=== PATIENT | female | born 1935 | race African-American/Black ===

== ENCOUNTER 2016-06-15 12:12 | Inpatient (IN) | payer OTHER, BC ==
[~2016-06-15] VITALS: Ht 162.6 cm; Wt 82.5 kg
[2016-06-15] VITALS (11 sets, daily range): BP systolic 100–149; BP diastolic 50–69
[~2016-06-15 12:12] MED LIST: ADVAIR 250/501 DIS1 IH; ADVAIR 250/501 DISK IH; AMBIEN10 MG PO; AMLODIPINE BESY10 MG PO; ASPIR 8181 M1 PO; ASPIRIN325 MG PO; ASPIRIN81 M1 PO; AZITHROMYCIN250 MG1 PO; Advair 250/50 Diskus IH; BACTRIM,SEPT1 TABLET PO; BAYER CHILDREN'81 MG PO; CEFDINIR300 MG PO; CEFTIN500 MG PO; CELEBREX200 MG PO; CILOSTAZOL100 MG PO; COMBIVENT INH14.7 GM IH; COMBIVENT200 INHALA IH; COUMADIN,JANTOVE5 MG PO; Combivent IH; Coumadin dosing per PO; DELTASONE20 M1 PO; DIOVAN HCT 11 TABLE1 PO; DIOVAN HCT 1601 EAC1 PO; DIOVAN160 MG PO; DOXYCYCLINE HY100 MG PO; FEOSOL325 MG PO; FEROSUL325 MG PO; Feosol PO; Flagyl PO; GLUCOPHAGE500 MG PO; HYZAAR 50-121 TABLET PO; IRON27 MG PO; IRON325 M1 PO; IRON325 MG PO; K-DUR10 MEQ PO; KLOR-CON 88 MEQ PO; KLOR-CON M1010 MEQ PO; LASIX20 MG PO; LOPRESSOR25 MG PO; METOPROLOL TART25 MG PO; Maxipime IV; NORCO 5/3251 TABLET PO; Norvasc PO; OXYCODONE-APAP1 EACH PO; OYST-CAL D, OS500 MG PO; PANTOPRAZOLE SO40 MG PO; PERCOCET 5/31 TABLET PO; PLAVIX75 MG PO; PLETAL100 MG PO; POTASSIUM CHLO10 ME3 PO; PREDNISONE5 MG PO; PROAIR HFA8.5 GM IH; Pletal PO; SENOKOT S,PE1 TABLET PO; SIMVASTATIN20 MG PO; SIMVASTATIN40 MG PO; SPIRIVA RESPIMAT4 GM IH; TESSALON200 MG PO; THERAGRAN1 TABLET PO; Tylenol Regular Stre PO; VALSARTAN160 MG PO; VITAMIN D1000 INTUN PO; Vicodin,Lortab 5/500 PO; Vicodin,Norco 5/325 PO; ZITHROMAX Z-PA250 MG PO; ZOCOR20 MG PO; Zocor PO; predniSONE PO
[2016-06-15 13:15] LABS: POINT-OF-CARE METER ID UU14174212
[2016-06-15 20:21] LABS: METH RESISTANT S AUREUS PCR NEGATIVE (NEGATIVE)
[2016-06-15 20:22] LABS: BASE EXCESS -0.7 mEq/L (-3 to +3); BICARBONATE 24.2 mEq/L (22-26); CARBOXY HGB 1.4 % (0-5); COMMENTS - BLOOD GASES C+A+; DEVICE VENTILATOR; FI02 60 %; MECHANICAL RATE 16 resp/min; METHEMOGLOBIN 1.7 % (0-1.5); MODE AC; PCO2 40 mm Hg (35-45); PEEP 8 CM/H20; PO2 103 mm Hg (80-100); SITE RB; TIDAL VOLUME 400 ML; TOTAL RESP RATE 27 resp/min; pH 7.39 (7.35-7.45)
[2016-06-15 20:23] LABS: PROBE CHECK PASS; SPECIMEN PROCESSING CONTROL PASS
[2016-06-15 20:33] LABS: HEMATOCRIT 35.7 % (36.0-46.0); MCH 30.3 PG (29.0-34.0); MCHC 32.2 G/DL (30.0-36.0); MCV 93.9 FL (83-99); MEAN PLAT.VOLUME 11.4 uM^3 (9.5-12.4); PLATELET COUNT 202 K/uL (156-360); RBC DIS.WIDTH-CV 15.9 % (11.8-14.6); RBC DIS.WIDTH-SD 54.4 % (39-53)
[2016-06-15 20:48] LABS: ANION GAP 15 MEQ/L (2-14); CHLORIDE 105 MEQ/L (99-109); MAGNESIUM 1.7 mg/dl (1.3-2.7); POTASSIUM 4.1 MEQ/L (3.7-5.4); SAMPLE HEMOLYSIS CHECK 0; SAMPLE ICTERIC CHECK 0; SAMPLE LIPEMIA CHECK 0; SODIUM 142 MEQ/L (136-147)
[2016-06-15 20:54] LABS: GFR ESTIMATE (CALCULATED) > 59 mL/min/; GLUCOSE 109 mg/dL (70-99); UREA NITROGEN (BUN) 16 mg/dL (9-23)
[2016-06-15 22:07] LABS: Estimated Average Glucose 126 mg/dL (70-123)
[2016-06-16] VITALS (12 sets, daily range): BP systolic 100–126; BP diastolic 47–63
[2016-06-16 05:47] LABS: HEMATOCRIT 32.5 % (36.0-46.0); MCH 29.5 PG (29.0-34.0); MCHC 31.7 G/DL (30.0-36.0); MCV 93.1 FL (83-99); MEAN PLAT.VOLUME 11.8 uM^3 (9.5-12.4); PLATELET COUNT 201 K/uL (156-360); RBC DIS.WIDTH-CV 15.8 % (11.8-14.6); RBC DIS.WIDTH-SD 53.6 % (39-53); RED BLOOD COUNT 3.49 M/uL (3.80-5.20); WHITE BLOOD COUNT 8.7 K/uL (4.1-10.2)
[2016-06-16 06:25] LABS: ANION GAP 10 MEQ/L (2-14); CHLORIDE 106 MEQ/L (99-109); GFR ESTIMATE (CALCULATED) > 59 mL/min/; GLUCOSE 90 mg/dL (70-99); MAGNESIUM 1.5 mg/dl (1.3-2.7); POTASSIUM 3.8 MEQ/L (3.7-5.4); SAMPLE HEMOLYSIS CHECK 0; SAMPLE ICTERIC CHECK 0; SAMPLE LIPEMIA CHECK 0; SODIUM 138 MEQ/L (136-147); UREA NITROGEN (BUN) 15 mg/dL (9-23)
[2016-06-17] VITALS (9 sets, daily range): BP systolic 122–145; BP diastolic 48–93
[2016-06-17 14:07] LABS: HEMATOCRIT 38.1 % (36.0-46.0); MCH 29.5 PG (29.0-34.0); MCHC 31.2 G/DL (30.0-36.0); MCV 94.5 FL (83-99); MEAN PLAT.VOLUME 11.7 uM^3 (9.5-12.4); PLATELET COUNT 186 K/uL (156-360); RBC DIS.WIDTH-CV 15.9 % (11.8-14.6); RBC DIS.WIDTH-SD 52.5 % (39-53); RED BLOOD COUNT 4.03 M/uL (3.80-5.20); WHITE BLOOD COUNT 8.8 K/uL (4.1-10.2)
[2016-06-17 14:17] LABS: CHLORIDE 105 mEq/L (99-109); SODIUM 139 mEq/L (136-147)
[2016-06-17 14:18] LABS: GLUCOSE 87 mg/dL (70-99)
[2016-06-17 14:20] LABS: ANION GAP 10 MEQ/L (2-14)
[2016-06-17 14:22] LABS: GFR ESTIMATE (CALCULATED) > 59 mL/min/
[2016-06-17 14:23] LABS: UREA NITROGEN (BUN) 13 mg/dL (9-23)
[2016-06-18] VITALS (8 sets, daily range): BP systolic 120–167; BP diastolic 56–86
[2016-06-19] VITALS: BP 143/60
[2016-06-19 04:00] VITALS: BP 111/54
[2016-06-19 09:00] VITALS: BP 119/55
[2016-06-19 12:00] VITALS: BP 141/102
[2016-06-19 16:01] VITALS: BP 117/50
[2016-06-19 20:00] VITALS: BP 127/51
[2016-06-20] VITALS (9 sets, daily range): BP systolic 104–134; BP diastolic 49–58
[2016-06-21] VITALS (12 sets, daily range): BP systolic 109–140; BP diastolic 39–72
[2016-06-21 20:55] LABS: POINT-OF-CARE METER ID UU14174217
[2016-06-22] VITALS (8 sets, daily range): BP systolic 0–141; BP diastolic 0–66
[2016-06-22 06:27] LABS: POINT-OF-CARE METER ID UU13113731
[2016-06-22 12:10] LABS: POINT-OF-CARE METER ID UU14162636
[2016-06-22 18:11] LABS: POINT-OF-CARE METER ID UU14162636
[2016-06-22 21:24] LABS: POINT-OF-CARE METER ID UU14162636
[2016-06-23] VITALS (7 sets, daily range): BP systolic 127–163; BP diastolic 57–72
[2016-06-24 07:58] VITALS: BP 125/60
[2016-06-24 11:23] VITALS: BP 155/68
[2016-06-24 16:57] VITALS: BP 163/69
[2016-06-24 20:11] VITALS: BP 142/63
[2016-06-24 23:22] VITALS: BP 142/70
[2016-06-25 07:13] LABS: EOSINOPHIL COUNT 0.9 K/uL (0-0.3); IMMATURE GRANULOCYTE (%) 0.7 % (0.0-0.7); IMMATURE GRANULOCYTE COUNT 0.1 K/uL; LYMPHOCYTE COUNT 3.3 K/uL (1.0-2.8); MCH 29.2 PG (29.0-34.0); MCHC 31.1 G/DL (30.0-36.0); MCV 93.9 FL (83-99); MEAN PLAT.VOLUME 12.2 uM^3 (9.5-12.4); MONOCYTE COUNT 1.1 K/uL (0-0.8); NEUTROPHIL COUNT 9.6 K/uL (1.8-6.4); PLATELET COUNT 243 K/uL (156-360); RBC DIS.WIDTH-CV 16.5 % (11.8-14.6); RBC DIS.WIDTH-SD 56.6 % (39-53); RED BLOOD COUNT 3.94 M/uL (3.80-5.20); WHITE BLOOD COUNT 15.1 K/uL (4.1-10.2)
[2016-06-25 07:20] LABS: ALKALINE PHOSPHATASE 92 IU/L (3-129); ANION GAP 10 MEQ/L (2-14); CHLORIDE 107 MEQ/L (99-109); GFR ESTIMATE (CALCULATED) > 59 mL/min/; GLUCOSE 76 mg/dL (70-99); SAMPLE HEMOLYSIS CHECK 0; SAMPLE ICTERIC CHECK 0; SAMPLE LIPEMIA CHECK 0; SODIUM 142 MEQ/L (136-147); TOTAL BILIRUBIN 0.4 MG/DL (0.0-1.0); UREA NITROGEN (BUN) 16 mg/dL (9-23)
[2016-06-25 07:52] LABS: HEMATOLOGY COMMENT 1 SMEAR COMPATIBLE; PLAT.SUFFICIENCY ADEQUATE
[2016-06-25 08:40] VITALS: BP 159/69
[2016-06-25 16:13] VITALS: BP 128/61
[2016-06-26 00:25] VITALS: BP 135/65
[2016-06-26 07:59] VITALS: BP 153/77
[2016-06-26 16:03] VITALS: BP 123/67
[2016-06-26 23:59] VITALS: BP 158/68
[2016-06-27 07:48] VITALS: BP 177/80
[2016-06-27 15:03] VITALS: BP 119/54
[2016-06-27 23:35] VITALS: BP 126/70; BP 137/90
[2016-06-28 07:20] VITALS: BP 116/58
[2016-06-28 15:20] VITALS: BP 145/63
[2016-06-28 23:00] VITALS: BP 143/64
[2016-06-29] VITALS (7 sets, daily range): BP systolic 110–152; BP diastolic 54–86
[2016-06-29 13:09] LABS: HEMATOCRIT 37.7 % (36.0-46.0); MCH 30.1 PG (29.0-34.0); MCHC 31.8 G/DL (30.0-36.0); MCV 94.5 FL (83-99); MEAN PLAT.VOLUME 12.1 uM^3 (9.5-12.4); PLATELET COUNT 213 K/uL (156-360); RBC DIS.WIDTH-CV 16.9 % (11.8-14.6); RBC DIS.WIDTH-SD 57.7 % (39-53); RED BLOOD COUNT 3.99 M/uL (3.80-5.20); WHITE BLOOD COUNT 11.4 K/uL (4.1-10.2)
[2016-06-29 13:34] LABS: ALKALINE PHOSPHATASE 97 IU/L (3-129); ANION GAP 9 MEQ/L (2-14); CHLORIDE 105 MEQ/L (99-109); GFR ESTIMATE (CALCULATED) > 59 mL/min/; GLUCOSE 144 mg/dL (70-99); POTASSIUM 4.1 MEQ/L (3.7-5.4); SAMPLE HEMOLYSIS CHECK 0; SAMPLE ICTERIC CHECK 0; SAMPLE LIPEMIA CHECK 0; SODIUM 141 MEQ/L (136-147); UREA NITROGEN (BUN) 14 mg/dL (9-23)
[2016-06-29 13:45] LABS: TOTAL BILIRUBIN 0.5 MG/DL (0.0-1.0)
[2016-06-29 13:47] LABS: EOSINOPHIL (%) 0.4 % (0-5); EOSINOPHIL COUNT 0.1 K/uL (0-0.3); IMMATURE GRANULOCYTE (%) 0.4 % (0.0-0.7); IMMATURE GRANULOCYTE COUNT 0.1 K/uL; LYMPHOCYTE COUNT 0.7 K/uL (1.0-2.8); MONOCYTE COUNT 0.1 K/uL (0-0.8); NEUTROPHIL (%) 92.3 % (45-76); NEUTROPHIL COUNT 10.5 K/uL (1.8-6.4)
[2016-06-30 06:01] LABS: POINT-OF-CARE METER ID UU13113725
[2016-06-30 07:50] VITALS: BP 140/61
[2016-06-30 15:05] VITALS: BP 158/67
[2016-06-30 15:16] LABS: POINT-OF-CARE METER ID UU13113725
[2016-06-30 21:13] LABS: POINT-OF-CARE METER ID UU13113725
[2016-06-30 23:49] VITALS: BP 114/56
[2016-07-01 09:13] VITALS: BP 115/58
[2016-07-01 11:42] LABS: POINT-OF-CARE METER ID UU13113725
[2016-07-01 12:37] LABS: TROP-I INTERPRETATION NEGATIVE; TROPONIN-I 0.01 ng/mL (0.0-0.30)
[2016-07-01 16:00] VITALS: BP 156/56
[2016-07-01 16:25] VITALS: BP 121/69
[2016-07-01 16:36] LABS: POINT-OF-CARE METER ID UU13113725
[2016-07-01 19:31] LABS: TROP-I INTERPRETATION NEGATIVE; TROPONIN-I 0.02 ng/mL (0.0-0.30)
[2016-07-01 21:45] LABS: TROP-I INTERPRETATION NEGATIVE; TROPONIN-I 0.02 ng/mL (0.0-0.30)
[2016-07-01 22:04] LABS: POINT-OF-CARE METER ID UU13113725
[2016-07-01 23:41] VITALS: BP 116/55
[2016-07-02 07:38] VITALS: BP 137/90
[2016-07-02 15:27] VITALS: BP 158/93
[2016-07-02 21:38] LABS: POINT-OF-CARE METER ID UU13113725
[2016-07-02 23:05] VITALS: BP 147/65
[2016-07-03 08:38] VITALS: BP 136/71
[2016-07-03 12:41] VITALS: BP 161/67
[2016-07-03 15:07] VITALS: BP 116/59
[2016-07-03 22:43] VITALS: BP 153/68
[2016-07-03 22:46] VITALS: BP 114/70
[2016-07-04 08:33] VITALS: BP 132/73
[2016-07-04 12:06] LABS: POINT-OF-CARE METER ID UU13113725
[2016-07-04 15:59] VITALS: BP 139/66
[2016-07-04 16:16] LABS: POINT-OF-CARE METER ID UU13113725
[2016-07-04 21:13] LABS: POINT-OF-CARE METER ID UU13113725
[2016-07-04 23:15] VITALS: BP 133/64
[2016-07-05 05:39] LABS: POINT-OF-CARE METER ID UU13113725
[2016-07-05 11:26] LABS: POINT-OF-CARE METER ID UU13113725
[2016-07-05 16:58] VITALS: BP 178/77
[2016-07-05 21:01] LABS: POINT-OF-CARE METER ID UU13113725
[2016-07-05 23:31] VITALS: BP 129/63
[2016-07-06 06:23] LABS: POINT-OF-CARE METER ID UU13113725
[2016-07-06 07:40] VITALS: BP 147/66
[2016-07-06 09:12] LABS: HEMATOCRIT 34.8 % (36.0-46.0); MCH 30.1 PG (29.0-34.0); MCHC 31.9 G/DL (30.0-36.0); MCV 94.3 FL (83-99); MEAN PLAT.VOLUME 11.9 uM^3 (9.5-12.4); PLATELET COUNT 167 K/uL (156-360); RBC DIS.WIDTH-SD 58.1 % (39-53); RED BLOOD COUNT 3.69 M/uL (3.80-5.20); WHITE BLOOD COUNT 10.4 K/uL (4.1-10.2)
[2016-07-06 09:35] LABS: ANION GAP 10 MEQ/L (2-14); CHLORIDE 110 MEQ/L (99-109); GFR ESTIMATE (CALCULATED) > 59 mL/min/; GLUCOSE 106 mg/dL (70-99); POTASSIUM 3.7 MEQ/L (3.7-5.4); SAMPLE HEMOLYSIS CHECK 0; SAMPLE ICTERIC CHECK 0; SAMPLE LIPEMIA CHECK 0; SODIUM 143 MEQ/L (136-147); UREA NITROGEN (BUN) 20 mg/dL (9-23)
[2016-07-06 12:33] LABS: POINT-OF-CARE METER ID UU13113725
[2016-07-06 15:55] VITALS: BP 147/67
[2016-07-06 16:09] LABS: POINT-OF-CARE METER ID UU13113725
[2016-07-06 21:13] LABS: POINT-OF-CARE METER ID UU13113725
[2016-07-06 23:25] VITALS: BP 116/56
[2016-07-07 05:56] LABS: POINT-OF-CARE METER ID UU13113725
[2016-07-07 07:10] LABS: DELETE MACHINE DIFF? YES; HEMATOCRIT 33.7 % (36.0-46.0); MCH 29.8 PG (29.0-34.0); MCHC 31.8 G/DL (30.0-36.0); MCV 93.9 FL (83-99); RBC DIS.WIDTH-CV 17.1 % (11.8-14.6); RED BLOOD COUNT 3.59 M/uL (3.80-5.20); WHITE BLOOD COUNT 9.1 K/uL (4.1-10.2)
[2016-07-07 07:31] LABS: ALKALINE PHOSPHATASE 87 IU/L (3-129); ANION GAP 12 MEQ/L (2-14); CHLORIDE 109 MEQ/L (99-109); GFR ESTIMATE (CALCULATED) > 59 mL/min/; GLUCOSE 85 mg/dL (70-99); SAMPLE HEMOLYSIS CHECK 0; SAMPLE ICTERIC CHECK 0; SAMPLE LIPEMIA CHECK 0; SODIUM 140 MEQ/L (136-147); TOTAL BILIRUBIN 0.5 MG/DL (0.0-1.0); UREA NITROGEN (BUN) 20 mg/dL (9-23)
[2016-07-07 08:13] LABS: ABS NEUTROPHIL COUNT 6.56; ANISOCYTOSIS 1+; EOSINOPHIL ABS CT 0.73; MACROCYTES 1+; PLAT.SUFFICIENCY ADEQUATE; PLATELET COUNT UNABLE TO REPORT K/uL (156-360); POLYCHROMASIA OCC
[2016-07-07 09:10] VITALS: BP 176/71
[2016-07-07 11:32] LABS: POINT-OF-CARE METER ID UU13113725
[2016-07-07 16:16] LABS: POINT-OF-CARE METER ID UU13113725
[2016-07-07 16:44] VITALS: BP 180/74
[2016-07-07] MEDS ORDERED: PREDNISONE20 MG PO (18:06)
[2016-07-07] MEDS ORDERED: DOCUSATE SODIU100 MG PO (18:06)
[2016-07-07] MEDS ORDERED: ENDOCET 5-3251 EACH PO (18:06)
== END 2016-07-07 20:30 | disposition home health service (06) | DRG 166 ==
LOC: SDC 12:12 → 4WEST 16:36 → 2SOUTH 16:36 → 5EAST 16:36 → 2EAST 16:36 → 4WEST 17:59 → 2EAST 06-22 23:46 → 5EAST 06-29 19:14
PROVIDERS: Anesthesiology; Emergency Medicine; Internal Medicine; Internal Medicine Pulmonary Disease; Surgery; Thoracic Surgery (Cardiothoracic Vascular Surgery)
DX: C34.11 Malignant neoplasm of upper lobe, right bronchus or lung (principal); J95.821 Acute postprocedural respiratory failure; C78.02 Secondary malignant neoplasm of left lung; J98.11 Atelectasis; J44.1 Chronic obstructive pulmonary disease with (acute) exacerbation; R07.89 Other chest pain; R94.31 Abnormal electrocardiogram [ECG] [EKG]; E11.9 Type 2 diabetes mellitus without complications; I10 Essential (primary) hypertension; D64.9 Anemia, unspecified; M54.9 Dorsalgia, unspecified; G89.29 Other chronic pain; I73.9 Peripheral vascular disease, unspecified; E78.5 Hyperlipidemia, unspecified; Z96.643 Presence of artificial hip joint, bilateral; Z87.891 Personal history of nicotine dependence; Z88.0 Allergy status to penicillin; Z88.1 Allergy status to other antibiotic agents; Z79.82 Long term (current) use of aspirin
CPT/HCPCS: 36415; 36600; 71010; 71020; 71275; 74220; 77293; 77300; 77301; 77334; 77338; 77338 XS; 77385; 80048; 80053; 82803; 82948; 83036; 83735; 84100; 84439; 84443; 84484; 85025; 85027; 85610 GA; 85730 GA; 86850; 86900; 86901; 87070; 87205; 87641; 88305; 93005; 94002; 94640; 94640 76; 94667; 94668; 94760; 94799; 97530 GO; 97530 GP; 99202; C1751; J0330; J0690; J0692; J1100; J1170; J1200; J1335; J1626; J1644; J1815; J1940; J2250; J2405; J2704; J2710; J2920; J2930; J3010; J3475; J7050; J7120; J7512; J8540; J9045; J9267; S0028

== ENCOUNTER 2016-09-08 23:42 | Emergency (ER) | payer OTHER, BC ==
[~2016-09-08] VITALS: Ht 162.6 cm; Wt 70.1 kg
[~2016-09-08 23:42] MED LIST changes: +DOCUSATE SODIU100 MG PO; +ENDOCET 5-3251 EACH PO; +PREDNISONE20 MG PO
[2016-09-09 00:34] LABS: HEMATOCRIT 34.3 % (36.0-46.0); MCH 31.7 PG (29.0-34.0); MCHC 32.4 G/DL (30.0-36.0); PLATELET COUNT 268 K/uL (156-360); RBC DIS.WIDTH-CV 20.3 % (11.8-14.6); RBC DIS.WIDTH-SD 72.4 % (39-53); WHITE BLOOD COUNT 4.4 K/uL (4.1-10.2)
[2016-09-09 00:50] LABS: CHLORIDE 104 mEq/L (99-109); POTASSIUM 2.9 mEq/L (3.7-5.4); SODIUM 142 mEq/L (136-147)
[2016-09-09 00:52] LABS: GLUCOSE 95 mg/dL (70-99)
[2016-09-09 00:53] LABS: ANION GAP 12 MEQ/L (2-14)
[2016-09-09 00:55] LABS: GFR ESTIMATE (CALCULATED) > 59 mL/min/
[2016-09-09 00:56] LABS: UREA NITROGEN (BUN) 12 mg/dL (9-23)
[2016-09-09 01:00] LABS: TROP-I INTERPRETATION NEGATIVE; TROPONIN-I 0.01 ng/mL (0.0-0.30)
[2016-09-09 01:30] VITALS: BP 143/76
== END 2016-09-09 01:58 | disposition home or self-care (01) ==
LOC: EME 23:42
PROVIDERS: Emergency Medicine
DX: E87.6 Hypokalemia (principal); R60.0 Localized edema; J44.1 Chronic obstructive pulmonary disease with (acute) exacerbation; C34.91 Malignant neoplasm of unspecified part of right bronchus or lung; I10 Essential (primary) hypertension; E11.9 Type 2 diabetes mellitus without complications; Z87.891 Personal history of nicotine dependence
CPT/HCPCS: 71020; 80048; 84484; 85027; 93005; 99281; 99285

== ENCOUNTER 2016-09-11 22:24 | Emergency (ER) | payer OTHER, BC ==
[~2016-09-11] VITALS: Ht 162.6 cm; Wt 65.4 kg
[2016-09-11 23:37] LABS: HEMATOCRIT 33.5 % (36.0-46.0); MCH 31.6 PG (29.0-34.0); MCHC 31.9 G/DL (30.0-36.0); MCV 98.8 FL (83-99); MEAN PLAT.VOLUME 10.4 uM^3 (9.5-12.4); PLATELET COUNT 239 K/uL (156-360); RBC DIS.WIDTH-CV 20.9 % (11.8-14.6); RBC DIS.WIDTH-SD 75.7 % (39-53); RED BLOOD COUNT 3.39 M/uL (3.80-5.20); WHITE BLOOD COUNT 4.4 K/uL (4.1-10.2)
[2016-09-11 23:43] LABS: CHLORIDE 107 mEq/L (99-109); POTASSIUM 3.2 mEq/L (3.7-5.4); SODIUM 142 mEq/L (136-147)
[2016-09-11 23:45] LABS: GLUCOSE 108 mg/dL (70-99)
[2016-09-11 23:46] LABS: ANION GAP 12 MEQ/L (2-14)
[2016-09-11 23:48] LABS: INTER. NORMALIZED RATIO 1.1; PROTHROMBIN TIME 10.8 (9.2-11.2)
[2016-09-11 23:49] LABS: GFR ESTIMATE (CALCULATED) > 59 mL/min/
[2016-09-11 23:50] LABS: UREA NITROGEN (BUN) 12 mg/dL (9-23)
[2016-09-11 23:56] LABS: TROP-I INTERPRETATION NEGATIVE; TROPONIN-I < 0.01 ng/mL (0.0-0.30)
[2016-09-12 02:04] LABS: EOSINOPHIL (%) 2.3 % (0-5); EOSINOPHIL COUNT 0.1 K/uL (0-0.3); IMMATURE GRANULOCYTE (%) 0.5 % (0.0-0.7); INSTRUMENT ABS NEUTROPHIL CT 3.3 K/uL; LYMPHOCYTE COUNT 0.5 K/uL (1.0-2.8); MONOCYTE (%) 10.5 % (3-12); MONOCYTE COUNT 0.5 K/uL (0-0.8); NEUTROPHIL (%) 75.1 % (45-76); NEUTROPHIL COUNT 3.3 K/uL (1.8-6.4)
[2016-09-12 02:55] VITALS: BP 161/67
== END 2016-09-12 02:59 | disposition home or self-care (01) ==
LOC: EME 22:24
PROVIDERS: Emergency Medicine
PROC: 0SS9XZZ Reposition Right Hip Joint, External Approach (ICD-10-PCS; principal; 2016-09-11)
DX: T84.020A Dislocation of internal right hip prosthesis, initial encounter (principal); X50.0XXA Overexertion from strenuous movement or load, initial encounter; F32.9 Major depressive disorder, single episode, unspecified; J44.9 Chronic obstructive pulmonary disease, unspecified; C34.90 Malignant neoplasm of unspecified part of unspecified bronchus or lung; I10 Essential (primary) hypertension; Z96.643 Presence of artificial hip joint, bilateral; Z79.82 Long term (current) use of aspirin; Z79.84 Long term (current) use of oral hypoglycemic drugs; Z87.891 Personal history of nicotine dependence
CPT/HCPCS: 71010; 73502; 73503; 80048; 84484; 85025; 85610; 85730; 86850; 86900; 86901; 93005; 94640; 99281; 99285; J2270; J2405

== ENCOUNTER 2016-09-17 08:33 | Observation (INO) | payer OTHER, BC ==
[~2016-09-17] VITALS: Ht 162.6 cm; Wt 73.9 kg
[2016-09-17 09:30] LABS: EOSINOPHIL (%) 2.3 % (0-5); EOSINOPHIL COUNT 0.1 K/uL (0-0.3); HEMATOCRIT 35.1 % (36.0-46.0); IMMATURE GRANULOCYTE (%) 0.4 % (0.0-0.7); INSTRUMENT ABS NEUTROPHIL CT 4.1 K/uL; LYMPHOCYTE COUNT 0.4 K/uL (1.0-2.8); MCH 32.6 PG (29.0-34.0); MCHC 32.8 G/DL (30.0-36.0); MCV 99.4 FL (83-99); MEAN PLAT.VOLUME 10.6 uM^3 (9.5-12.4); MONOCYTE (%) 9.3 % (3-12); MONOCYTE COUNT 0.5 K/uL (0-0.8); NEUTROPHIL (%) 79.8 % (45-76); NEUTROPHIL COUNT 4.1 K/uL (1.8-6.4); PLATELET COUNT 260 K/uL (156-360); RBC DIS.WIDTH-CV 21.2 % (11.8-14.6); RBC DIS.WIDTH-SD 77.2 % (39-53); RED BLOOD COUNT 3.53 M/uL (3.80-5.20); WHITE BLOOD COUNT 5.2 K/uL (4.1-10.2)
[2016-09-17 09:42] LABS: CHLORIDE 105 mEq/L (99-109); POTASSIUM 3.7 mEq/L (3.7-5.4); SODIUM 142 mEq/L (136-147)
[2016-09-17 09:44] LABS: GLUCOSE 95 mg/dL (70-99)
[2016-09-17 09:45] LABS: ANION GAP 12 MEQ/L (2-14); INTER. NORMALIZED RATIO 1.1; PROTHROMBIN TIME 10.7 (9.2-11.2); PTT 29.2 (25-32)
[2016-09-17 09:48] LABS: GFR ESTIMATE (CALCULATED) > 59 mL/min/
[2016-09-17 09:49] LABS: UREA NITROGEN (BUN) 12 mg/dL (9-23)
[2016-09-17 09:55] LABS: TROP-I INTERPRETATION NEGATIVE; TROPONIN-I < 0.01 ng/mL (0.0-0.30)
[2016-09-17] MEDS ORDERED: K-DUR10 MEQ PO (13:35)
[2016-09-17] MEDS ORDERED: LMX 530 GM TP (13:36)
[2016-09-17 14:50] VITALS: BP 180/78
[2016-09-17 16:14] LABS: TROP-I INTERPRETATION NEGATIVE; TROPONIN-I 0.03 ng/mL (0.0-0.30)
[2016-09-17 20:36] VITALS: BP 160/88
[2016-09-17 21:19] LABS: TROP-I INTERPRETATION NEGATIVE; TROPONIN-I 0.02 ng/mL (0.0-0.30)
[2016-09-18 00:31] VITALS: BP 174/68
[2016-09-18 04:26] VITALS: BP 148/67
[2016-09-18 08:08] VITALS: BP 131/59
[2016-09-18 08:20] LABS: HEMATOCRIT 36.1 % (36.0-46.0); MCH 31.9 PG (29.0-34.0); MCHC 31.6 G/DL (30.0-36.0); MCV 101.1 FL (83-99); MEAN PLAT.VOLUME 10.8 uM^3 (9.5-12.4); PLATELET COUNT 277 K/uL (156-360); RBC DIS.WIDTH-CV 21.1 % (11.8-14.6); RBC DIS.WIDTH-SD 78.9 % (39-53); RED BLOOD COUNT 3.57 M/uL (3.80-5.20); WHITE BLOOD COUNT 4.8 K/uL (4.1-10.2)
[2016-09-18] MEDS ORDERED: SPIRIVA RESPIMAT4 GM IH (08:28)
[2016-09-18] MEDS ORDERED: VALACYCLOVIR500 MG PO (08:28)
[2016-09-18] MEDS ORDERED: LOPRESSOR25 MG PO (08:28)
[2016-09-18] MEDS ORDERED: FLONASE16 G1 BOTH NARES (08:29)
[2016-09-18] MEDS ORDERED: ADVAIR HFA120 INHALA IH (08:29)
[2016-09-18 08:40] LABS: ANION GAP 13 MEQ/L (2-14); CHLORIDE 104 MEQ/L (99-109); GFR ESTIMATE (CALCULATED) > 59 mL/min/; GLUCOSE 94 mg/dL (70-99); POTASSIUM 3.8 MEQ/L (3.7-5.4); SAMPLE HEMOLYSIS CHECK 0; SAMPLE ICTERIC CHECK 0; SAMPLE LIPEMIA CHECK 0; SODIUM 142 MEQ/L (136-147); UREA NITROGEN (BUN) 13 mg/dL (9-23)
[2016-09-18 12:36] VITALS: BP 98/54
== END 2016-09-18 13:40 | disposition home or self-care (01) ==
LOC: EME → EDBD 08:33 → EDOF 13:22 → 5WEST 13:22 → EDOF 13:22 → 5WEST 14:28
PROVIDERS: Emergency Medicine; Hospitalist
DX: B02.23 Postherpetic polyneuropathy (principal); R07.89 Other chest pain; Z88.1 Allergy status to other antibiotic agents; J44.9 Chronic obstructive pulmonary disease, unspecified; I10 Essential (primary) hypertension; E78.5 Hyperlipidemia, unspecified; E11.9 Type 2 diabetes mellitus without complications; D50.9 Iron deficiency anemia, unspecified; Z87.891 Personal history of nicotine dependence; I73.9 Peripheral vascular disease, unspecified; Z88.0 Allergy status to penicillin; Z79.82 Long term (current) use of aspirin; Z85.118 Personal history of other malignant neoplasm of bronchus and lung
CPT/HCPCS: 71010; 73721; 80048; 83880; 84484; 85025; 85027; 85610; 85730; 93005; 94640; 94664; 94799; 99202; 99281; 99285; G0378; G8978 GP CI; G8979 GP CH; G8987 GO CJ; G8988 GO CH; J1170; J1644; J2270

== ENCOUNTER 2016-09-22 18:36 | Emergency (ER) | payer OTHER, BC ==
[~2016-09-22] VITALS: Ht 162.6 cm; Wt 68.4 kg
[~2016-09-22 18:36] MED LIST changes: +ADVAIR HFA120 INHALA IH; +FLONASE16 G1 BOTH NARES; +LMX 530 GM TP; +VALACYCLOVIR500 MG PO
[2016-09-22 20:16] LABS: CHLORIDE 107 mEq/L (99-109); POTASSIUM 3.4 mEq/L (3.7-5.4); SODIUM 144 mEq/L (136-147)
[2016-09-22 20:18] LABS: GLUCOSE 94 mg/dL (70-99)
[2016-09-22 20:19] LABS: ANION GAP 13 MEQ/L (2-14); HEMATOCRIT 34.8 % (36.0-46.0); MCH 32.3 PG (29.0-34.0); MCHC 32.2 G/DL (30.0-36.0); MCV 100.3 FL (83-99); PLATELET COUNT 288 K/uL (156-360); RBC DIS.WIDTH-SD 77.1 % (39-53); RED BLOOD COUNT 3.47 M/uL (3.80-5.20)
[2016-09-22 20:20] LABS: WHITE BLOOD COUNT 7.2 K/uL (4.1-10.2)
[2016-09-22 20:22] LABS: GFR ESTIMATE (CALCULATED) > 59 mL/min/; UREA NITROGEN (BUN) 17 mg/dL (9-23)
[2016-09-22 21:01] LABS: TROP-I INTERPRETATION NEGATIVE; TROPONIN-I < 0.01 ng/mL (0.0-0.30)
[2016-09-22 23:40] VITALS: BP 149/74
== END 2016-09-23 00:05 | disposition home or self-care (01) ==
LOC: EME 18:36
PROVIDERS: Emergency Medicine
DX: R60.0 Localized edema (principal); R06.02 Shortness of breath; R07.9 Chest pain, unspecified; B02.9 Zoster without complications; M71.21 Synovial cyst of popliteal space [Baker], right knee; M79.661 Pain in right lower leg; I10 Essential (primary) hypertension; J44.9 Chronic obstructive pulmonary disease, unspecified; G89.29 Other chronic pain; E78.5 Hyperlipidemia, unspecified; F32.9 Major depressive disorder, single episode, unspecified; I73.9 Peripheral vascular disease, unspecified; Z95.820 Peripheral vascular angioplasty status with implants and grafts; Z79.84 Long term (current) use of oral hypoglycemic drugs; Z85.118 Personal history of other malignant neoplasm of bronchus and lung; Z96.643 Presence of artificial hip joint, bilateral; Z87.891 Personal history of nicotine dependence
CPT/HCPCS: 71020; 71275; 80048; 83880; 84484; 85027; 93005; 93971; 99281; 99284

== ENCOUNTER 2017-02-12 22:50 | Inpatient (IN) | payer OTHER, BC ==
[~2017-02-12] VITALS: Ht 162.6 cm; Wt 64.1 kg
[~2017-02-12 22:50] MED LIST changes: +POTASSIUM-9999 MG PO; +SENOKOT,SENN1 TABLET PO
[2017-02-13 00:44] LABS: EOSINOPHIL (%) 2.8 % (0-5); EOSINOPHIL COUNT 0.3 K/uL (0-0.3); HEMATOCRIT 35.8 % (36.0-46.0); IMMATURE GRANULOCYTE (%) 0.2 % (0.0-0.7); INSTRUMENT ABS NEUTROPHIL CT 7.2 K/uL; LYMPHOCYTE COUNT 0.8 K/uL (1.0-2.8); MCHC 31.8 G/DL (30.0-36.0); MCV 91.1 FL (83-99); MEAN PLAT.VOLUME 10.4 uM^3 (9.5-12.4); MONOCYTE (%) 6.5 % (3-12); MONOCYTE COUNT 0.6 K/uL (0-0.8); NEUTROPHIL (%) 81.5 % (45-76); NEUTROPHIL COUNT 7.2 K/uL (1.8-6.4); PLATELET COUNT 203 K/uL (156-360); RBC DIS.WIDTH-CV 17.2 % (11.8-14.6); RBC DIS.WIDTH-SD 58.6 % (39-53); RED BLOOD COUNT 3.93 M/uL (3.80-5.20); WHITE BLOOD COUNT 8.9 K/uL (4.1-10.2)
[2017-02-13 00:51] LABS: INTER. NORMALIZED RATIO 1.1; PROTHROMBIN TIME 11.6 SEC (10.2-12.9)
[2017-02-13 00:53] LABS: PTT 35.3 SEC (25-37)
[2017-02-13 00:54] LABS: CHLORIDE 112 mEq/L (99-109); POTASSIUM 3.7 mEq/L (3.7-5.4); SODIUM 144 mEq/L (136-147)
[2017-02-13 00:56] LABS: GLUCOSE 121 mg/dL (70-99)
[2017-02-13 00:58] LABS: ANION GAP 13 MEQ/L (2-14)
[2017-02-13 01:00] LABS: GFR ESTIMATE (CALCULATED) > 59 mL/min/
[2017-02-13 01:01] LABS: UREA NITROGEN (BUN) 12 mg/dL (9-23)
[2017-02-13] MEDS ORDERED: CENTRUM SILVER1 EAC3 PO (09:24)
[2017-02-13] MEDS ORDERED: GABAPENTIN300 MG PO (09:24)
[2017-02-13] MEDS ORDERED: VALSARTAN-HCTZ1 EAC2 PO (10:41)
[2017-02-13] MEDS ORDERED: SENOKOT,SENN1 TABLET PO (10:43)
[2017-02-13 15:03] VITALS: BP 134/62
[2017-02-13 19:50] VITALS: BP 152/67
[2017-02-13 21:23] LABS: POINT-OF-CARE METER ID UU14117124
[2017-02-13 23:56] VITALS: BP 180/85
[2017-02-14] VITALS (7 sets, daily range): BP systolic 103–174; BP diastolic 55–87
[2017-02-14 06:34] LABS: POINT-OF-CARE METER ID UU14208753
[2017-02-14 11:46] LABS: POINT-OF-CARE METER ID UU14208753
[2017-02-14 16:56] LABS: POINT-OF-CARE METER ID UU14208753
[2017-02-15 04:05] VITALS: BP 142/65
[2017-02-15 07:25] LABS: GFR ESTIMATE (CALCULATED) > 59 mL/min/; UREA NITROGEN (BUN) 16 mg/dL (9-23)
[2017-02-15 08:21] VITALS: BP 135/65
[2017-02-15 11:02] LABS: POINT-OF-CARE METER ID UU14117124
[2017-02-15 11:59] VITALS: BP 137/69
[2017-02-15 15:42] VITALS: BP 163/72
[2017-02-15 15:55] LABS: POINT-OF-CARE METER ID UU14117124
[2017-02-15 20:33] VITALS: BP 132/63
[2017-02-16 00:11] VITALS: BP 175/81
[2017-02-16 04:55] VITALS: BP 146/68
[2017-02-16 05:53] LABS: POINT-OF-CARE METER ID UU14117124
[2017-02-16 07:43] VITALS: BP 133/63
[2017-02-16 12:04] VITALS: BP 130/77
[2017-02-16 12:13] LABS: POINT-OF-CARE METER ID UU14117124
[2017-02-16 16:12] VITALS: BP 113/56
[2017-02-16 16:29] LABS: POINT-OF-CARE METER ID UU14188577
[2017-02-16 19:50] VITALS: BP 142/65
[2017-02-17 04:18] VITALS: BP 127/58
[2017-02-17 06:02] LABS: POINT-OF-CARE METER ID UU14188577
[2017-02-17 08:06] LABS: EOSINOPHIL (%) 0.8 % (0-5); EOSINOPHIL COUNT 0.1 K/uL (0-0.3); IMMATURE GRANULOCYTE (%) 0.3 % (0.0-0.7); INSTRUMENT ABS NEUTROPHIL CT 7.2 K/uL; LYMPHOCYTE COUNT 1.3 K/uL (1.0-2.8); MCH 30.1 PG (29.0-34.0); MCV 94.1 FL (83-99); MEAN PLAT.VOLUME 10.8 uM^3 (9.5-12.4); MONOCYTE (%) 7.4 % (3-12); MONOCYTE COUNT 0.7 K/uL (0-0.8); NEUTROPHIL (%) 77.8 % (45-76); NEUTROPHIL COUNT 7.2 K/uL (1.8-6.4); PLATELET COUNT 226 K/uL (156-360); RBC DIS.WIDTH-CV 17.2 % (11.8-14.6); RBC DIS.WIDTH-SD 59.7 % (39-53); RED BLOOD COUNT 3.72 M/uL (3.80-5.20); WHITE BLOOD COUNT 9.2 K/uL (4.1-10.2)
[2017-02-17 08:22] VITALS: BP 131/60
[2017-02-17 08:29] LABS: ALKALINE PHOSPHATASE 70 IU/L (3-129); ANION GAP 5 MEQ/L (2-14); CHLORIDE 105 MEQ/L (99-109); GFR ESTIMATE (CALCULATED) > 59 mL/min/; GLUCOSE 109 mg/dL (70-99); POTASSIUM 3.6 MEQ/L (3.7-5.4); SAMPLE HEMOLYSIS CHECK 0; SAMPLE ICTERIC CHECK 0; SAMPLE LIPEMIA CHECK 0; SODIUM 141 MEQ/L (136-147); TOTAL BILIRUBIN 0.3 MG/DL (0.0-1.0); UREA NITROGEN (BUN) 21 mg/dL (9-23)
[2017-02-17 11:47] VITALS: BP 141/65
[2017-02-17 16:12] VITALS: BP 183/77
[2017-02-17 19:58] VITALS: BP 144/65
[2017-02-17 23:27] VITALS: BP 179/76
[2017-02-18 04:19] VITALS: BP 127/59
[2017-02-18 06:41] LABS: POINT-OF-CARE METER ID UU14208753
[2017-02-18 08:31] VITALS: BP 184/77
[2017-02-18 11:48] LABS: POINT-OF-CARE METER ID UU14208753
[2017-02-18 12:46] VITALS: BP 120/58
[2017-02-18 16:31] VITALS: BP 129/60
[2017-02-18 17:13] LABS: POINT-OF-CARE METER ID UU14208753
[2017-02-18 20:12] VITALS: BP 130/60
[2017-02-18 23:35] VITALS: BP 130/92
[2017-02-19 03:03] VITALS: BP 121/56
[2017-02-19 06:59] LABS: POINT-OF-CARE METER ID UU14188577
[2017-02-19 07:15] VITALS: BP 128/64
[2017-02-19 12:19] LABS: POINT-OF-CARE METER ID UU14117124
[2017-02-19 12:37] VITALS: BP 113/52
[2017-02-19 16:50] LABS: POINT-OF-CARE METER ID UU14117124
[2017-02-19 17:15] VITALS: BP 160/79
[2017-02-19 19:51] VITALS: BP 140/65
[2017-02-19 23:49] VITALS: BP 164/71
[2017-02-20 04:09] LABS: VANCOMYCIN, TROUGH 14.4 MCG/ML (10-20)
[2017-02-20 04:42] VITALS: BP 127/56
[2017-02-20 07:00] LABS: POINT-OF-CARE METER ID UU14117124
[2017-02-20 07:23] VITALS: BP 129/61
[2017-02-20 11:00] LABS: POINT-OF-CARE METER ID UU14208753
[2017-02-20 11:14] LABS: GFR ESTIMATE (CALCULATED) > 59 mL/min/
[2017-02-20 12:14] VITALS: BP 146/66
[2017-02-20 15:29] VITALS: BP 111/53
[2017-02-20 16:08] LABS: POINT-OF-CARE METER ID UU14117124
[2017-02-20 20:33] VITALS: BP 141/64
[2017-02-20 23:31] VITALS: BP 138/65
[2017-02-21 04:31] VITALS: BP 119/57
[2017-02-21 06:21] LABS: POINT-OF-CARE METER ID UU14117124
[2017-02-21 07:42] VITALS: BP 113/53
[2017-02-21 10:28] VITALS: BP 120/54
[2017-02-21 11:16] LABS: POINT-OF-CARE METER ID UU14208753
[2017-02-21 15:40] VITALS: BP 139/53
[2017-02-21 19:15] VITALS: BP 137/68
[2017-02-21 23:06] VITALS: BP 127/57
[2017-02-22 04:43] VITALS: BP 141/63
[2017-02-22 07:23] VITALS: BP 163/71
[2017-02-22 09:04] LABS: POINT-OF-CARE METER ID UU14208753
[2017-02-22 12:22] VITALS: BP 158/76
[2017-02-22 15:37] VITALS: BP 130/60
[2017-02-22 20:45] VITALS: BP 172/73
[2017-02-23 00:07] VITALS: BP 133/60
[2017-02-23 04:30] VITALS: BP 118/58
[2017-02-23 06:56] LABS: POINT-OF-CARE METER ID UU14188577
[2017-02-23 07:09] LABS: EOSINOPHIL (%) 0.9 % (0-5); EOSINOPHIL COUNT 0.1 K/uL (0-0.3); HEMATOCRIT 33.3 % (36.0-46.0); IMMATURE GRANULOCYTE (%) 0.3 % (0.0-0.7); INSTRUMENT ABS NEUTROPHIL CT 7.9 K/uL; LYMPHOCYTE COUNT 1.2 K/uL (1.0-2.8); MCH 29.3 PG (29.0-34.0); MCHC 30.9 G/DL (30.0-36.0); MCV 94.6 FL (83-99); MEAN PLAT.VOLUME 11.3 uM^3 (9.5-12.4); MONOCYTE (%) 8.1 % (3-12); MONOCYTE COUNT 0.8 K/uL (0-0.8); NEUTROPHIL (%) 78.4 % (45-76); NEUTROPHIL COUNT 7.9 K/uL (1.8-6.4); PLATELET COUNT 240 K/uL (156-360); RBC DIS.WIDTH-CV 17.6 % (11.8-14.6); RBC DIS.WIDTH-SD 61.1 % (39-53); RED BLOOD COUNT 3.52 M/uL (3.80-5.20); WHITE BLOOD COUNT 10.1 K/uL (4.1-10.2)
[2017-02-23 07:53] VITALS: BP 134/63
[2017-02-23 10:58] LABS: POINT-OF-CARE METER ID UU14188577
[2017-02-23 11:35] VITALS: BP 147/68
[2017-02-23 14:25] LABS: GFR ESTIMATE (CALCULATED) > 59 mL/min/
[2017-02-23 15:23] VITALS: BP 123/60
[2017-02-23 15:53] LABS: POINT-OF-CARE METER ID UU14188577
[2017-02-23 20:00] VITALS: BP 168/72
[2017-02-24] VITALS (7 sets, daily range): BP systolic 106–154; BP diastolic 51–65
[2017-02-24 06:32] LABS: POINT-OF-CARE METER ID UU14117124
[2017-02-24 07:03] LABS: EOSINOPHIL (%) 0.3 % (0-5); HEMATOCRIT 33.5 % (36.0-46.0); IMMATURE GRANULOCYTE (%) 0.4 % (0.0-0.7); INSTRUMENT ABS NEUTROPHIL CT 7.3 K/uL; LYMPHOCYTE COUNT 1.1 K/uL (1.0-2.8); MCH 30.5 PG (29.0-34.0); MCHC 31.9 G/DL (30.0-36.0); MCV 95.4 FL (83-99); MEAN PLAT.VOLUME 11.2 uM^3 (9.5-12.4); MONOCYTE (%) 5.9 % (3-12); MONOCYTE COUNT 0.5 K/uL (0-0.8); NEUTROPHIL (%) 81.4 % (45-76); NEUTROPHIL COUNT 7.3 K/uL (1.8-6.4); PLATELET COUNT 225 K/uL (156-360); RBC DIS.WIDTH-CV 17.7 % (11.8-14.6); RBC DIS.WIDTH-SD 61.1 % (39-53); RED BLOOD COUNT 3.51 M/uL (3.80-5.20)
[2017-02-24 07:24] LABS: ANION GAP 9 MEQ/L (2-14); CHLORIDE 104 MEQ/L (99-109); GFR ESTIMATE (CALCULATED) > 59 mL/min/; GLUCOSE 109 mg/dL (70-99); POTASSIUM 4.2 MEQ/L (3.7-5.4); SAMPLE HEMOLYSIS CHECK 0; SAMPLE ICTERIC CHECK 0; SAMPLE LIPEMIA CHECK 0; SODIUM 142 MEQ/L (136-147); UREA NITROGEN (BUN) 23 mg/dL (9-23)
[2017-02-24 22:22] LABS: POINT-OF-CARE METER ID UU14188577
[2017-02-25 03:49] VITALS: BP 121/62
[2017-02-25 07:28] LABS: POINT-OF-CARE METER ID UU14188577
[2017-02-25 08:14] VITALS: BP 149/60
[2017-02-25 16:09] VITALS: BP 146/67
[2017-02-25 23:36] VITALS: BP 140/65
[2017-02-26 08:35] VITALS: BP 125/60
[2017-02-26 11:26] VITALS: BP 133/60
[2017-02-26 15:30] VITALS: BP 121/58
[2017-02-26 20:23] VITALS: BP 150/68
[2017-02-27 00:15] VITALS: BP 118/58
[2017-02-27 04:10] VITALS: BP 118/57
[2017-02-27 06:28] LABS: POINT-OF-CARE METER ID UU14117124
[2017-02-27 08:10] VITALS: BP 130/62
[2017-02-27 11:37] LABS: POINT-OF-CARE METER ID UU14208753
[2017-02-27 15:45] VITALS: BP 149/69
[2017-02-27 16:56] LABS: POINT-OF-CARE METER ID UU14208753
[2017-02-27 18:25] VITALS: BP 141/61
[2017-02-27 23:25] VITALS: BP 134/63
[2017-02-28 06:44] LABS: POINT-OF-CARE METER ID UU13113725; POINT-OF-CARE USER ID 608261329
[2017-02-28 06:51] VITALS: BP 134/61
[2017-02-28 11:15] VITALS: BP 123/58
[2017-02-28 11:27] LABS: POINT-OF-CARE METER ID UU13113725
[2017-02-28 16:34] VITALS: BP 121/56
[2017-02-28 16:43] LABS: POINT-OF-CARE METER ID UU13113725
[2017-02-28 19:54] VITALS: BP 128/65
[2017-03-01 00:41] VITALS: BP 106/54
[2017-03-01 07:43] LABS: POINT-OF-CARE METER ID UU13113725
[2017-03-01 08:35] VITALS: BP 138/63
[2017-03-01 10:46] LABS: POINT-OF-CARE METER ID UU13113725
[2017-03-01 11:40] VITALS: BP 152/70
[2017-03-01 16:30] VITALS: BP 125/60
[2017-03-01 16:49] LABS: POINT-OF-CARE METER ID UU13113774
[2017-03-01 19:35] VITALS: BP 131/60
[2017-03-01 20:57] LABS: POINT-OF-CARE METER ID UU13113725
[2017-03-01 23:20] VITALS: BP 134/63
[2017-03-02 03:54] VITALS: BP 131/60
[2017-03-02 06:07] LABS: EOSINOPHIL (%) 0 % (0-5); HEMATOCRIT 34.1 % (36.0-46.0); IMMATURE GRANULOCYTE (%) 0.5 % (0.0-0.7); IMMATURE GRANULOCYTE COUNT 0.1 K/uL; LYMPHOCYTE COUNT 0.4 K/uL (1.0-2.8); MCH 30.6 PG (29.0-34.0); MCV 95.8 FL (83-99); MEAN PLAT.VOLUME 11.2 uM^3 (9.5-12.4); MONOCYTE COUNT 0.4 K/uL (0-0.8); NEUTROPHIL (%) 92.8 % (45-76); PLATELET COUNT 221 K/uL (156-360); RBC DIS.WIDTH-CV 18.3 % (11.8-14.6); RBC DIS.WIDTH-SD 64.8 % (39-53); RED BLOOD COUNT 3.56 M/uL (3.80-5.20); WHITE BLOOD COUNT 11.8 K/uL (4.1-10.2)
[2017-03-02 06:34] LABS: POINT-OF-CARE METER ID UU13113774
[2017-03-02 06:41] LABS: ALKALINE PHOSPHATASE 71 IU/L (3-129); ANION GAP 7 MEQ/L (2-14); CHLORIDE 104 MEQ/L (99-109); GFR ESTIMATE (CALCULATED) > 59 mL/min/; GLUCOSE 136 mg/dL (70-99); POTASSIUM 4.5 MEQ/L (3.7-5.4); SAMPLE HEMOLYSIS CHECK 0; SAMPLE ICTERIC CHECK 0; SAMPLE LIPEMIA CHECK 0; SODIUM 141 MEQ/L (136-147); TOTAL BILIRUBIN 0.5 MG/DL (0.0-1.0); UREA NITROGEN (BUN) 27 mg/dL (9-23)
[2017-03-02 08:05] VITALS: BP 143/65
[2017-03-02 11:47] LABS: POINT-OF-CARE METER ID UU13113774
[2017-03-02 12:23] VITALS: BP 125/60
[2017-03-02 16:35] LABS: POINT-OF-CARE METER ID UU13113725
[2017-03-02 16:55] VITALS: BP 126/58
[2017-03-02 19:44] VITALS: BP 144/66
[2017-03-02 21:16] LABS: POINT-OF-CARE METER ID UU13113774
[2017-03-02 23:57] VITALS: BP 142/67
[2017-03-03 03:39] VITALS: BP 143/66
[2017-03-03 06:01] LABS: POINT-OF-CARE METER ID UU13113725
[2017-03-03 07:29] VITALS: BP 144/66
[2017-03-03 11:07] LABS: POINT-OF-CARE METER ID UU13113774
[2017-03-03 11:57] VITALS: BP 130/68
[2017-03-03 16:26] LABS: POINT-OF-CARE METER ID UU13113774
[2017-03-03 16:36] VITALS: BP 137/70
[2017-03-03 18:46] VITALS: BP 135/63
[2017-03-03 20:38] LABS: POINT-OF-CARE METER ID UU13113774
[2017-03-03 22:45] VITALS: BP 138/62
[2017-03-04 02:33] VITALS: BP 163/72
[2017-03-04 05:52] LABS: POINT-OF-CARE METER ID UU13113725
[2017-03-04 07:20] VITALS: BP 130/58
[2017-03-04 11:11] LABS: POINT-OF-CARE METER ID UU13113774
[2017-03-04 11:24] VITALS: BP 152/66
[2017-03-04 16:21] LABS: POINT-OF-CARE METER ID UU13113725
[2017-03-04 17:50] VITALS: BP 132/72
[2017-03-04 23:41] VITALS: BP 179/75
[2017-03-05 03:04] VITALS: BP 149/64
[2017-03-05 05:43] LABS: POINT-OF-CARE METER ID UU13113774
[2017-03-05 08:13] VITALS: BP 123/60
[2017-03-05 11:10] VITALS: BP 120/60
[2017-03-05 11:29] LABS: POINT-OF-CARE METER ID UU13113725
[2017-03-05 16:18] VITALS: BP 168/70
[2017-03-05 16:25] LABS: POINT-OF-CARE METER ID UU13113725
[2017-03-05] MEDS ORDERED: PREDNISONE10 MG PO (18:50)
== END 2017-03-05 20:10 | disposition home health service (06) | DRG 166 ==
LOC: EME 22:50 → EDOF 02-13 06:35 → 3EAST 02-13 06:35 → ENRESERV 02-13 06:47 → 3EAST 02-13 14:57 → ENRESERV 02-27 15:40 → 5EAST 02-27 18:22
PROVIDERS: Emergency Medicine; Internal Medicine; Internal Medicine Pulmonary Disease
DX: C34.11 Malignant neoplasm of upper lobe, right bronchus or lung (principal); J44.0 Chronic obstructive pulmonary disease with (acute) lower respiratory infection; J18.9 Pneumonia, unspecified organism; J44.1 Chronic obstructive pulmonary disease with (acute) exacerbation; T84.020A Dislocation of internal right hip prosthesis, initial encounter; T84.030A Mechanical loosening of internal right hip prosthetic joint, initial encounter; Y79.2 Prosthetic and other implants, materials and accessory orthopedic devices associated with adverse incidents; T82.594A Other mechanical complication of infusion catheter, initial encounter; Y82.8 Other medical devices associated with adverse incidents; I10 Essential (primary) hypertension; E78.5 Hyperlipidemia, unspecified; E11.51 Type 2 diabetes mellitus with diabetic peripheral angiopathy without gangrene; J98.09 Other diseases of bronchus, not elsewhere classified; B02.23 Postherpetic polyneuropathy; D50.9 Iron deficiency anemia, unspecified; F32.9 Major depressive disorder, single episode, unspecified; K59.00 Constipation, unspecified; Z87.891 Personal history of nicotine dependence; Z99.81 Dependence on supplemental oxygen; Z92.21 Personal history of antineoplastic chemotherapy; Z92.3 Personal history of irradiation; Z88.0 Allergy status to penicillin; Z88.1 Allergy status to other antibiotic agents
CPT/HCPCS: 71010; 71020; 71250; 73501; 73502; 76001; 80048; 80053; 80202; 82565; 82948; 83605; 84145 90; 84520; 85025; 85610; 85730; 86850; 86900; 86901; 87040; 87070; 87081; 87102; 87116; 87205; 87206; 87278; 88108; 88305; 88341 TC; 88342 TC; 94640; 94640 76; 94760; 94799; 97530 GO; 97530 GP; 99281; 99285; C1751; J0456; J0692; J1100; J1644; J1650; J1815; J2250; J2310; J2405; J2469; J2920; J3010; J3370; J3420; J7050; J7512; J8540; J9035; J9045; J9305; S0073

== ENCOUNTER 2017-04-25 16:14 | Inpatient (IN) | payer OTHER, BC ==
[~2017-04-25] VITALS: Ht 162.6 cm; Wt 61.0 kg
[~2017-04-25 16:14] MED LIST changes: +CENTRUM SILVER1 EAC3 PO; +FOLIC ACID0.8 MG PO; +GABAPENTIN300 MG PO; +PREDNISONE10 MG PO; +VALSARTAN-HCTZ1 EAC2 PO
[2017-04-25 17:49] LABS: EOSINOPHIL (%) 0.2 % (0-5); HEMATOCRIT 31.5 % (36.0-46.0); IMMATURE GRANULOCYTE (%) 2.1 % (0.0-0.7); IMMATURE GRANULOCYTE COUNT 0.4 K/uL; INSTRUMENT ABS NEUTROPHIL CT 15.8 K/uL; LYMPHOCYTE COUNT 0.8 K/uL (1.0-2.8); MCH 30.7 PG (29.0-34.0); MCHC 32.7 G/DL (30.0-36.0); MCV 93.8 FL (83-99); MEAN PLAT.VOLUME 11.2 uM^3 (9.5-12.4); MONOCYTE (%) 8.8 % (3-12); MONOCYTE COUNT 1.7 K/uL (0-0.8); NEUTROPHIL (%) 84.6 % (45-76); NEUTROPHIL COUNT 15.8 K/uL (1.8-6.4); PLATELET COUNT 89 K/uL (156-360); RBC DIS.WIDTH-CV 15.2 % (11.8-14.6); RBC DIS.WIDTH-SD 51.8 % (39-53); RED BLOOD COUNT 3.36 M/uL (3.80-5.20); WHITE BLOOD COUNT 18.7 K/uL (4.1-10.2)
[2017-04-25 17:58] LABS: CHLORIDE 97 mEq/L (99-109); POTASSIUM 2.8 mEq/L (3.7-5.4); SODIUM 133 mEq/L (136-147)
[2017-04-25 18:00] LABS: GLUCOSE 90 mg/dL (70-99)
[2017-04-25 18:02] LABS: ANION GAP 11 MEQ/L (2-14)
[2017-04-25 18:04] LABS: ALKALINE PHOSPHATASE 127 IU/L (3-129); GFR ESTIMATE (CALCULATED) > 59 mL/min/
[2017-04-25 18:05] LABS: UREA NITROGEN (BUN) 9 mg/dL (9-23)
[2017-04-25 18:11] LABS: TROP-I INTERPRETATION NEGATIVE; TROPONIN-I < 0.01 ng/mL (0.0-0.30)
[2017-04-25 18:24] LABS: TOTAL BILIRUBIN 0.3 mg/dL (0.0-1.0)
[2017-04-25 19:44] LABS: ADD MIUA? NO; BILIRUBIN NEGATIVE; BLOOD NEGATIVE; COLOR YELLOW ((YELLOW)); GLUCOSE (STRIP) NEGATIVE; KETONES NEGATIVE; LEUKOCYTES NEGATIVE; NITRITE NEGATIVE; PROTEIN (STRIP) NEGATIVE; SPECIFIC GRAVITY 1.012 (1.000-1.030); UROBILINOGEN 0.2 MG/DL (0.2-1.0)
[2017-04-25] MEDS ORDERED: ATIVAN0.5 MG PO (20:39)
[2017-04-26] VITALS (7 sets, daily range): BP systolic 96–152; BP diastolic 52–67
[2017-04-26 01:16] LABS: TROP-I INTERPRETATION NEGATIVE; TROPONIN-I < 0.01 ng/mL (0.0-0.30)
[2017-04-26 06:41] LABS: HEMATOCRIT 30.6 % (36.0-46.0); MCH 30.2 PG (29.0-34.0); MCV 94.4 FL (83-99); MEAN PLAT.VOLUME 10.8 uM^3 (9.5-12.4); PLATELET COUNT 105 K/uL (156-360); RBC DIS.WIDTH-SD 51.7 % (39-53); RED BLOOD COUNT 3.24 M/uL (3.80-5.20); WHITE BLOOD COUNT 21.3 K/uL (4.1-10.2)
[2017-04-26 07:01] LABS: TROP-I INTERPRETATION NEGATIVE; TROPONIN-I < 0.01 ng/mL (0.0-0.30)
[2017-04-26 07:05] LABS: ANION GAP 6 MEQ/L (2-14); CHLORIDE 100 MEQ/L (99-109); GFR ESTIMATE (CALCULATED) > 59 mL/min/; GLUCOSE 85 mg/dL (70-99); SAMPLE HEMOLYSIS CHECK 0; SAMPLE ICTERIC CHECK 0; SAMPLE LIPEMIA CHECK 0; SODIUM 134 MEQ/L (136-147); UREA NITROGEN (BUN) 6 mg/dL (9-23)
[2017-04-26 07:06] LABS: POTASSIUM 3.4 MEQ/L (3.7-5.4)
[2017-04-26 14:24] LABS: INTERNAL CONTROL VALID? YES
[2017-04-26 14:31] LABS: C DIFF TOXIN NEGATIVE (NEGATIVE)
[2017-04-26 14:32] LABS: PROBE CHECK PASS; SPECIMEN PROCESSING CONTROL PASS
[2017-04-27 03:12] VITALS: BP 126/59
[2017-04-27 05:24] LABS: EOSINOPHIL (%) 0 % (0-5); HEMATOCRIT 30.4 % (36.0-46.0); IMMATURE GRANULOCYTE (%) 3.9 % (0.0-0.7); INSTRUMENT ABS NEUTROPHIL CT 22.7 K/uL; LYMPHOCYTE COUNT 0.5 K/uL (1.0-2.8); MCH 31.5 PG (29.0-34.0); MCHC 32.6 G/DL (30.0-36.0); MCV 96.8 FL (83-99); MEAN PLAT.VOLUME 10.8 uM^3 (9.5-12.4); MONOCYTE (%) 1.1 % (3-12); MONOCYTE COUNT 0.3 K/uL (0-0.8); NEUTROPHIL (%) 92.6 % (45-76); NEUTROPHIL COUNT 22.7 K/uL (1.8-6.4); PLATELET COUNT 127 K/uL (156-360); RBC DIS.WIDTH-CV 15.4 % (11.8-14.6); RBC DIS.WIDTH-SD 53.1 % (39-53); RED BLOOD COUNT 3.14 M/uL (3.80-5.20); WHITE BLOOD COUNT 24.5 K/uL (4.1-10.2)
[2017-04-27 05:49] LABS: ANION GAP 10 MEQ/L (2-14); CHLORIDE 106 MEQ/L (99-109); GFR ESTIMATE (CALCULATED) > 59 mL/min/; GLUCOSE 124 mg/dL (70-99); SAMPLE HEMOLYSIS CHECK 0; SAMPLE ICTERIC CHECK 0; SAMPLE LIPEMIA CHECK 0; SODIUM 140 MEQ/L (136-147); UREA NITROGEN (BUN) 6 mg/dL (9-23)
[2017-04-27 05:50] LABS: POTASSIUM 4.9 MEQ/L (3.7-5.4)
[2017-04-27 11:58] VITALS: BP 143/95
[2017-04-27 16:21] VITALS: BP 158/71
[2017-04-27 20:00] VITALS: BP 140/63
[2017-04-27 23:38] VITALS: BP 181/81
[2017-04-28 04:15] VITALS: BP 161/74
[2017-04-28 06:11] LABS: BASOPHIL COUNT 0.1 K/uL (0-0.1); EOSINOPHIL (%) 0 % (0-5); HEMATOCRIT 28.3 % (36.0-46.0); IMMATURE GRANULOCYTE (%) 3.2 % (0.0-0.7); IMMATURE GRANULOCYTE COUNT 0.9 K/uL; INSTRUMENT ABS NEUTROPHIL CT 24.4 K/uL; LYMPHOCYTE COUNT 1.1 K/uL (1.0-2.8); MCH 30.7 PG (29.0-34.0); MCHC 31.8 G/DL (30.0-36.0); MCV 96.6 FL (83-99); MEAN PLAT.VOLUME 10.6 uM^3 (9.5-12.4); MONOCYTE (%) 4.7 % (3-12); MONOCYTE COUNT 1.3 K/uL (0-0.8); NEUTROPHIL (%) 87.8 % (45-76); NEUTROPHIL COUNT 24.4 K/uL (1.8-6.4); NRBC (%) 0.1 /100 WBC (0-0); RBC DIS.WIDTH-CV 15.4 % (11.8-14.6); RBC DIS.WIDTH-SD 53.3 % (39-53); RED BLOOD COUNT 2.93 M/uL (3.80-5.20); WHITE BLOOD COUNT 27.7 K/uL (4.1-10.2)
[2017-04-28 06:13] LABS: PLATELET COUNT 170 K/uL (156-360)
[2017-04-28 06:36] LABS: ANION GAP 7 MEQ/L (2-14); CHLORIDE 105 MEQ/L (99-109); GFR ESTIMATE (CALCULATED) > 59 mL/min/; GLUCOSE 72 mg/dL (70-99); POTASSIUM 4.4 MEQ/L (3.7-5.4); SAMPLE HEMOLYSIS CHECK 0; SAMPLE ICTERIC CHECK 0; SAMPLE LIPEMIA CHECK 0; SODIUM 141 MEQ/L (136-147); UREA NITROGEN (BUN) 10 mg/dL (9-23)
[2017-04-28 08:01] VITALS: BP 162/74
[2017-04-28 11:20] VITALS: BP 160/72
[2017-04-28 16:37] LABS: METH RESISTANT S AUREUS PCR NEGATIVE (NEGATIVE)
[2017-04-28 16:55] LABS: PROBE CHECK PASS; SPECIMEN PROCESSING CONTROL PASS
[2017-04-28 16:57] VITALS: BP 160/74
[2017-04-28 18:49] VITALS: BP 153/77
[2017-04-28 22:50] VITALS: BP 171/77
[2017-04-29 03:45] VITALS: BP 147/81
[2017-04-29 05:59] LABS: BASOPHIL COUNT 0.1 K/uL (0-0.1); EOSINOPHIL (%) 0 % (0-5); HEMATOCRIT 31.2 % (36.0-46.0); IMMATURE GRANULOCYTE (%) 2.7 % (0.0-0.7); IMMATURE GRANULOCYTE COUNT 0.6 K/uL; INSTRUMENT ABS NEUTROPHIL CT 18.6 K/uL; LYMPHOCYTE COUNT 0.9 K/uL (1.0-2.8); MCH 31.2 PG (29.0-34.0); MCHC 32.1 G/DL (30.0-36.0); MCV 97.2 FL (83-99); MEAN PLAT.VOLUME 10.3 uM^3 (9.5-12.4); MONOCYTE (%) 4.9 % (3-12); NEUTROPHIL (%) 87.8 % (45-76); NEUTROPHIL COUNT 18.6 K/uL (1.8-6.4); NRBC (%) 0.1 /100 WBC (0-0); PLATELET COUNT 184 K/uL (156-360); RBC DIS.WIDTH-CV 15.7 % (11.8-14.6); RED BLOOD COUNT 3.21 M/uL (3.80-5.20); WHITE BLOOD COUNT 21.2 K/uL (4.1-10.2)
[2017-04-29 06:26] LABS: ANION GAP 9 MEQ/L (2-14); CHLORIDE 103 MEQ/L (99-109); GFR ESTIMATE (CALCULATED) > 59 mL/min/; GLUCOSE 74 mg/dL (70-99); SAMPLE HEMOLYSIS CHECK 0; SAMPLE ICTERIC CHECK 0; SAMPLE LIPEMIA CHECK 0; SODIUM 141 MEQ/L (136-147); UREA NITROGEN (BUN) 10 mg/dL (9-23)
[2017-04-29 07:35] VITALS: BP 154/72
[2017-04-29 11:47] VITALS: BP 135/65
[2017-04-29 16:07] VITALS: BP 143/67
[2017-04-29 19:25] VITALS: BP 127/63
[2017-04-29 23:25] VITALS: BP 167/79
[2017-04-30 03:51] VITALS: BP 154/80
[2017-04-30 07:41] VITALS: BP 150/78
[2017-04-30 12:16] VITALS: BP 148/68
[2017-04-30 14:21] LABS: HEMATOCRIT 31.1 % (36.0-46.0); MCH 31.3 PG (29.0-34.0); MCHC 32.2 G/DL (30.0-36.0); MCV 97.2 FL (83-99); MEAN PLAT.VOLUME 10.4 uM^3 (9.5-12.4); NRBC (%) 0.2 /100 WBC (0-0); PLATELET COUNT 210 K/uL (156-360); RBC DIS.WIDTH-CV 16.1 % (11.8-14.6); WHITE BLOOD COUNT 14.9 K/uL (4.1-10.2)
[2017-04-30 16:59] VITALS: BP 148/76
[2017-04-30 19:23] VITALS: BP 131/60
[2017-04-30 23:40] VITALS: BP 127/64
[2017-05-01 03:48] VITALS: BP 128/60
[2017-05-01 07:22] VITALS: BP 132/74
[2017-05-01 11:36] VITALS: BP 135/70
[2017-05-01 14:37] VITALS: BP 114/56
[2017-05-01 19:34] VITALS: BP 120/56
[2017-05-02 00:14] VITALS: BP 135/60
[2017-05-02 04:06] VITALS: BP 135/61
[2017-05-02 07:10] VITALS: BP 136/63
[2017-05-02 11:19] VITALS: BP 133/68
[2017-05-02 17:08] VITALS: BP 133/70
[2017-05-02 20:02] VITALS: BP 130/63
[2017-05-03] VITALS (7 sets, daily range): BP systolic 121–163; BP diastolic 58–77
[2017-05-03 13:22] LABS: EOSINOPHIL (%) 0 % (0-5); HEMATOCRIT 34.5 % (36.0-46.0); IMMATURE GRANULOCYTE (%) 0.7 % (0.0-0.7); IMMATURE GRANULOCYTE COUNT 0.1 K/uL; INSTRUMENT ABS NEUTROPHIL CT 17.6 K/uL; LYMPHOCYTE COUNT 0.6 K/uL (1.0-2.8); MCH 30.7 PG (29.0-34.0); MCHC 31.3 G/DL (30.0-36.0); MEAN PLAT.VOLUME 10.5 uM^3 (9.5-12.4); MONOCYTE (%) 1.7 % (3-12); MONOCYTE COUNT 0.3 K/uL (0-0.8); NEUTROPHIL (%) 94.4 % (45-76); NEUTROPHIL COUNT 17.6 K/uL (1.8-6.4); PLATELET COUNT 268 K/uL (156-360); RBC DIS.WIDTH-CV 16.7 % (11.8-14.6); RBC DIS.WIDTH-SD 57.2 % (39-53); RED BLOOD COUNT 3.52 M/uL (3.80-5.20); WHITE BLOOD COUNT 18.6 K/uL (4.1-10.2)
[2017-05-03 13:50] LABS: ANION GAP 10 MEQ/L (2-14); CHLORIDE 99 MEQ/L (99-109); GFR ESTIMATE (CALCULATED) > 59 mL/min/; GLUCOSE 159 mg/dL (70-99); POTASSIUM 3.6 MEQ/L (3.7-5.4); SAMPLE HEMOLYSIS CHECK 0; SAMPLE ICTERIC CHECK 0; SAMPLE LIPEMIA CHECK 0; SODIUM 137 MEQ/L (136-147); UREA NITROGEN (BUN) 10 mg/dL (9-23)
[2017-05-04 03:17] VITALS: BP 141/64
[2017-05-04 05:38] VITALS: BP 174/84
[2017-05-04 07:15] VITALS: BP 144/65
[2017-05-04 11:00] VITALS: BP 138/67
[2017-05-04 15:20] VITALS: BP 121/59
[2017-05-05 08:50] VITALS: BP 139/63
[2017-05-05 16:00] VITALS: BP 122/56
[2017-05-06 00:22] VITALS: BP 146/66
[2017-05-06 07:34] VITALS: BP 146/66
[2017-05-06 15:24] VITALS: BP 118/56
[2017-05-07] VITALS: BP 139/71
[2017-05-08 00:32] VITALS: BP 143/72
[2017-05-08 07:15] VITALS: BP 159/76
[2017-05-08] MEDS ORDERED: LORAZEPAM0.5 MG PO (15:29)
[2017-05-08] MEDS ORDERED: MORPHINE CON20 MG/M1 PO (15:29)
[2017-05-08] MEDS ORDERED: HYOSCYAMINE0.125 M2 PO (15:29)
[2017-05-08 15:41] VITALS: BP 147/66
[2017-05-08] MEDS ORDERED: ADVAIR HFA120 INHALA IH (16:05)
[2017-05-08] MEDS ORDERED: DOXYCYCLINE HY100 MG PO (16:05)
[2017-05-08] MEDS ORDERED: PREDNISONE10 MG PO (16:07)
[2017-05-08 23:54] VITALS: BP 149/71
[2017-05-09 07:44] VITALS: BP 144/73
== END 2017-05-09 14:23 | disposition home health service (06) | DRG 193 ==
LOC: EME 16:14 → EDOF 22:06 → ENRESERV 22:07 → 5WEST 04-26 00:02 → EDOF 04-26 00:02 → 5EAST 04-26 09:33 → 5WEST 04-26 09:33 → ENRESERV 04-27 23:56 → 5EAST 04-28 00:51
PROVIDERS: Anesthesiology; Emergency Medicine; Internal Medicine; Physician Assistant
DX: J18.9 Pneumonia, unspecified organism (principal); J96.21 Acute and chronic respiratory failure with hypoxia; J44.0 Chronic obstructive pulmonary disease with (acute) lower respiratory infection; J44.1 Chronic obstructive pulmonary disease with (acute) exacerbation; E44.0 Moderate protein-calorie malnutrition; E87.1 Hypo-osmolality and hyponatremia; E87.6 Hypokalemia; E86.1 Hypovolemia; E86.0 Dehydration; I95.9 Hypotension, unspecified; E11.51 Type 2 diabetes mellitus with diabetic peripheral angiopathy without gangrene; K52.1 Toxic gastroenteritis and colitis; T45.1X5A Adverse effect of antineoplastic and immunosuppressive drugs, initial encounter; C34.91 Malignant neoplasm of unspecified part of right bronchus or lung; H01.003 Unspecified blepharitis right eye, unspecified eyelid; H01.006 Unspecified blepharitis left eye, unspecified eyelid; M25.561 Pain in right knee; I10 Essential (primary) hypertension; D64.9 Anemia, unspecified; E78.5 Hyperlipidemia, unspecified; F41.9 Anxiety disorder, unspecified; G89.29 Other chronic pain; M54.9 Dorsalgia, unspecified; Z51.5 Encounter for palliative care; Z66 Do not resuscitate; Z96.643 Presence of artificial hip joint, bilateral; Z68.23 Body mass index [BMI] 23.0-23.9, adult; Z92.3 Personal history of irradiation; Z87.891 Personal history of nicotine dependence; Z79.82 Long term (current) use of aspirin
CPT/HCPCS: 70470; 71010; 71250; 73080; 73560; 73630; 80048; 80053; 80202; 81003; 83630; 84484; 85025; 85027; 87040; 87070; 87205; 87493; 87506; 87641; 93005; 94640; 94640 76; 94760; 94799; 97530 GP; 99202; 99281; 99285; G0378; J0692; J1100; J1626; J1650; J2920; J3370; J3480; J7030; J7050; J7512; J9035; J9045; J9305; Q0167

== ENCOUNTER 2017-07-28 11:31 | Emergency (ER) | payer OTHER, BC ==
[~2017-07-28] VITALS: Ht 162.6 cm; Wt 60.0 kg
[~2017-07-28 11:31] MED LIST changes: +ATIVAN0.5 MG PO; +HYOSCYAMINE0.125 M2 PO; +LORAZEPAM0.5 MG PO; +MORPHINE CON20 MG/M1 PO
[2017-07-28 16:38] VITALS: BP 139/77
== END 2017-07-28 16:44 | disposition home or self-care (01) ==
LOC: EME 11:31
PROC: 0SWRXJZ Revision of Synthetic Substitute in Right Hip Joint, Femoral Surface, External Approach (ICD-10-PCS; principal; 2017-07-28)
DX: T84.020A Dislocation of internal right hip prosthesis, initial encounter (principal); Y79.2 Prosthetic and other implants, materials and accessory orthopedic devices associated with adverse incidents; J44.9 Chronic obstructive pulmonary disease, unspecified; I10 Essential (primary) hypertension; E78.5 Hyperlipidemia, unspecified; D64.9 Anemia, unspecified; F41.9 Anxiety disorder, unspecified; F32.9 Major depressive disorder, single episode, unspecified; Z79.51 Long term (current) use of inhaled steroids; Z79.82 Long term (current) use of aspirin; Z87.891 Personal history of nicotine dependence; Z96.643 Presence of artificial hip joint, bilateral; Z95.820 Peripheral vascular angioplasty status with implants and grafts; Z85.118 Personal history of other malignant neoplasm of bronchus and lung; Z90.49 Acquired absence of other specified parts of digestive tract; Z90.89 Acquired absence of other organs; Z90.710 Acquired absence of both cervix and uterus; Z88.0 Allergy status to penicillin; Z88.1 Allergy status to other antibiotic agents
CPT/HCPCS: 73501; 73502; 99281; 99285; J2704; J3010

== ENCOUNTER 2017-09-09 11:10 | Emergency (ER) | payer OTHER, BC ==
[~2017-09-09] VITALS: Ht 157.5 cm; Wt 55.6 kg
[2017-09-09] MEDS ORDERED: LEVAQUIN750 MG PO (14:48)
[2017-09-09 17:00] VITALS: BP 122/59
== END 2017-09-09 17:00 | disposition home or self-care (01) ==
LOC: EME 11:10
PROC: 0SS9XZZ Reposition Right Hip Joint, External Approach (ICD-10-PCS; principal; 2017-09-09)
DX: T84.020A Dislocation of internal right hip prosthesis, initial encounter (principal); J18.9 Pneumonia, unspecified organism; J44.0 Chronic obstructive pulmonary disease with (acute) lower respiratory infection; J90 Pleural effusion, not elsewhere classified; I10 Essential (primary) hypertension; E78.5 Hyperlipidemia, unspecified; I73.9 Peripheral vascular disease, unspecified; F41.9 Anxiety disorder, unspecified; F32.9 Major depressive disorder, single episode, unspecified; Z96.643 Presence of artificial hip joint, bilateral; Z85.118 Personal history of other malignant neoplasm of bronchus and lung; Z99.81 Dependence on supplemental oxygen; Z87.891 Personal history of nicotine dependence; Z90.49 Acquired absence of other specified parts of digestive tract; Z90.710 Acquired absence of both cervix and uterus; Z88.0 Allergy status to penicillin; Z88.1 Allergy status to other antibiotic agents
CPT/HCPCS: 71045; 73501; 73502; 99281; 99285